=== PATIENT | female | born 1950 | race Caucasian/White ===

== ENCOUNTER 2019-06-22 16:32 | Emergency (ER) | payer SELFPAY ==
[~2019-06-22] VITALS: Ht 162.6 cm; Wt 54.5 kg
[2019-06-22 17:10] VITALS: Ht 162.6 cm; Wt 54.5 kg
[2019-06-22 19:50] LABS: BASOPHIL % 0.4 % (0-2); PLATELET COUNT 167 x10^3mcL (130-400); RED CELL DISTRIBUTION WIDTH 12.4 % (11.5-14.5)
[2019-06-22 19:59] LABS: CALCIUM 9.2 mg/dL (8.5-10.1); CARBON DIOXIDE 29.6 mmol/L (21-32); CHLORIDE SERUM 104 mmol/L (98-107); CREATININE SERUM 0.7 mg/dL (0.6-1.0); GFR1 > 60 mL/min; GLUCOSE SERUM 133 mg/dL (74-106); SODIUM SERUM 140 mmol/L (136-145)
[2019-06-22 20:04] LABS: ALKALINE PHOSPHATASE 64 U/L (46-116); ALT/SGPT 12 U/L (14-59); AST/SGOT 7 U/L (15-37); BILIRUBIN TOTAL 0.38 mg/dL (0.20-1.00); TOTAL PROTEIN, SERUM 7.7 g/dL (6.4-8.2)
[2019-06-22 20:10] LABS: ALBUMIN 3.3 g/dL (3.4-5.0)
[2019-06-22 20:58] VITALS: BP 126/78
== END 2019-06-22 20:58 | disposition home or self-care (01) ==
LOC: ED 16:32
PROVIDERS: Emergency Medicine
DX: J06.9 Acute upper respiratory infection, unspecified (principal); B34.9 Viral infection, unspecified; I10 Essential (primary) hypertension; E11.9 Type 2 diabetes mellitus without complications
CPT/HCPCS: 36415; 82962